=== PATIENT | male | born 1965 | race Caucasian/White ===

== ENCOUNTER → 2017-02-13 | Outpatient (CLI) | payer OTHER ==
[~2017-02-13] MED LIST: BACTRIM DS 8001 TAB PO; KEFLEX 500MG.500 MG PO; LOVASTATIN40 MG PO; METFORMIN 500M500 M1 PO; NOMEDS *; PREDNISONE 20MG20 MG PO; TESSALON PERLE100 M1 PO; TESSALON PERLE100 MG PO; VIBRAMYCIN 100100 MG PO; VICODIN 5/500 T1 TAB PO; VICODIN 5/6 EACH/PAK OR; VOLTAREN75 MG PO; ZITHROMAX Z PA250 MG PO
[2017-02-13 11:48] LABS: BUN 13 mg/dL (7-18); PROSTATE-SPECIFIC ANTIGEN F/U 1.3 ng/mL (0.0-4.0)
[2017-02-13 12:17] LABS: GFR (ESTIMATED) 89 ML/MIN (>60)
[2017-02-16 10:38] LABS: Creatinine, Urine 191.4 mg/dL (Not Estab.); Microalbumin, Urine 298.2 ug/mL (Not Estab.)
== END ==
LOC: LAB 09:18
PROVIDERS: Internal Medicine
DX: E11.9 Type 2 diabetes mellitus without complications (principal); I10 Essential (primary) hypertension; E78.5 Hyperlipidemia, unspecified; R39.12 Poor urinary stream; K76.0 Fatty (change of) liver, not elsewhere classified